=== PATIENT | male | born 1940 | race Caucasian/White ===

== ENCOUNTER → 2018-03-30 | Outpatient (CLI) | payer MEDICARE ==
--- NOTE | 2018-03-30 08:21 | Diagnostic Imaging Report ---
This report includes an Addendum and supersedes previous reports for this exam. PROCEDURE:ABDOMINAL ULTRASOUND COMPARISON:None. INDICATIONS:Hep C, Hypertension FINDINGS: The exam is somewhat limited due to overlying bowel gas and patient's body habitus. Liver: Hepatomegaly, measuring 17.8 cm. Normal hepatic parenchymal echogenicity. No focal mass. Main portal vein: Measures 0.8 cm. Hepatopedal flow. Gallbladder: No evidence of wall thickening, pericholecystic fluid, or cholelithiasis. Common Bile Duct: Measures 0.5 cm. No echogenic filling defect. Sonographic Monreal's sign: Negative. Right kidney: Multiple right sided simple renal cysts, measuring up to 3.6 cm in the superior pole and 1.6 cm in the superior pole medially. A 3.8 cm mildly septated predominately anechoic cyst is seen in the right mid pole kidney. No solid mass, echogenic calculi, or hydronephrosis. Normal parenchymal echogenicity. Left kidney: Multiple left sided simple renal cysts, measuring up to 5.1 cm in the superior pole, an additional 1.3 cm cyst in the superior pole, and 1.9 cm cyst in the inferior pole. No solid mass, echogenic calculi, or hydronephrosis. Normal parenchymal echogenicity. Spleen: Measures 13.1 cm. Pancreas: The visualized portions of the pancreas are normal. Inferior vena cava: Normal. Aorta: Normal. Ascites: None. CONCLUSION: Hepatomegaly. Bilateral simple appearing renal cysts. Additional predominately simple 3.8 cm right mid pole cyst does not meet sonographic criteria for follow-up. Dictated by: RICH JIMENEZ M.D. on 03/30/2018 at 8:27 Electronically approved by: RICH JIMENEZ M.D. on 03/30/2018 at 8:27 ADDENDUM: The kidneys are mildly hyperechoic bilaterally, a non-specific finding. The right kidney measures 11.7 cm and the left kidney measures 12.4 cm. Dictated by: RICH JIMENEZ M.D. on 03/30/2018 at 8:33 Electronically approved by: RICH JIMENEZ M.D. on 03/30/2018 at 8:33
== END ==
LOC: US 07:18
PROVIDERS: ATTEND Internal Medicine Gastroenterology
DX: B18.2 Chronic viral hepatitis C (principal); I10 Essential (primary) hypertension; E66.9 Obesity, unspecified; Z71.3 Dietary counseling and surveillance
CPT/HCPCS: 76700

== ENCOUNTER → 2019-11-17 | Outpatient (CLI) | payer MEDICARE ==
[~2019-11-17] VITALS: Ht 190.5 cm; Wt 111.1 kg
[~2019-11-17] MED LIST: CEFDINIR300 MG PO; FLOMAX0.4 MG PO; GEMFIBROZIL600 MG PO; HYDROCHLOROTHIA25 MG PO; LOSARTAN POTAS100 MG PO; NIACIN500 M2 PO; SERTRALINE HCL50 MG PO
--- OUTSIDE RECORDS SUMMARY | 2019-11-17 09:55 | XMS REPORT ---
Author [facility] Address Unknown Phone Unavailable Care Team Providers Care Personal Care Attendant Name Role Phone HimanshuLIAMCaroline ROSA Unavailable Unavailable Payers Payer Name Policy Type Policy Number Effective Date Expiration Date Problems This patient has no known problems. Allergies, Adverse Reactions, Alerts Allergy Name Allergy Type Status Severity Reaction(s) Onset Date Inactive Date Treating Clinician Comments tetanus and diphtheria toxoids DA Active U 2016-03-05 00:00:00 Medications This patient has no known medications. Results Test Description Test Time Test Comments Text Results Atomic Results Result Comments SKIN,BIOPSY 2019-05-11 15:23:00 RUN DATE: 05/11/19 [facility] PAGE 1 RUN TIME: 1523 Specimen Inquiry RUN USER: INTERFACE PATIENT: MAURO BOND LOC: [facility] U #: [id number] AGE/SX: 78/M ROOM: RE05/09/19REG DR: Umang Javed MD : 39 BED: DIS: STATUS: GM Carolyn TLOC: SPEC #: [id number] RECD: 05/10/19 STATUS: ANTHONY RE #: [id number] FERNY: 05/09/19- SUBM DR: Umang Javed MD ENTERED: 05/10/19 SP TYPE: BX SKIN OTHR DR: Santosh Haas MD ORDERED: GROSS [place]IES [place]: [place] [id number] [place] [address] Santosh Haas MD [address] [place], [place] [id number] PROCEDURES: GROSS (05/11/19-1312) TISSUES: RIGHT LEG - LATERAL LOWER PUNCH BX CLINICAL HISTORY COLLECTION DATE: 05/09/19 NON-HEALING WOUND COMMENT Microscopic evaluation of multiple levels show no evidence of malignancy. Recommend excisional biopsy if there is clinical concern of a malignant lesion. FINAL DIAGNOSIS Skin, right lower lateral leg, punch biopsy: GRANULATION TISSUE, MILD CHRONIC INFLAMMATION, FIBROSIS AND FOREIGN BODY GIANT CELL REACTION, (see comment) NEGATIVE FOR MALIGNANCY FA/sm D 35974 CONTINUED ON NEXT PAGE RUN DATE: 05/11/19 [facility] - Lab PAGE 2 RUN TIME: 1523 Specimen Inquiry RUN USER: INTERFACE ------- SPEC #: [id number] PATIENT: MAURO BOND #[id number] (Continued) MACROSCOPIC The specimen is received in formalin, labeled with the patient's name and identified as "right lateral lower leg punch bx X 2". It consists of a punch biopsy measuring 0.1 cm in diameter and 1.0 cm in length. There are also small fragments of arroyo-pink tissue measuring up to 0.2 cm. The specimen is entirely submitted in a single cassette. GROSS PERFORMED AT [facility] [address] [place] [address] [phone] MICROSCOPIC Microscopic evaluation of multiple levels show a small portion of unremarkable epidermis. The dermis shows loose spindle cell proliferation and mild chronic inflammation. Rare extravasated red blood cells are seen. In addition, there is minute detached portion of tissue with small vessel proliferation and mild acute and chronic inflammatory infiltrates suggestive of granulation tissue. Sections of deep dermis shows foreign bodies with fine body giant cell reaction. No malignancy is identified. All of the stains, including any controls performed, stain appropriately. MICROSCOPIC PERFORMED AT [facility] [address] [place], [place] [id number] [phone] PERFORMING SITE Diagnosis performed at: [facility], [address] [place] [address] Signed SIGNATURE ON FILE Huong Moy MD 05/11/19 1523 END OF REPORT US ABDOMEN COMPLETE 2018-03-30 08:33:00 [place] [address] Patient Name: MAURO BOND MR #: [id number] : 1940 Age/Sex: 77/M Req #: [id number] Adm Physician: Ordered by: ROSA WILLIS MD Report #: [id number] Location: Room/Bed: Procedure: [id number] US/US ABDOMEN COMPLETE Exam Date: Exam Time: REPORT STATUS: Signed This report includes an Addendum and supersedes previous reports for this exam. PROCEDURE: ABDOMINAL ULTRASOUND COMPARISON: None. INDICATIONS: Hep C, Hypertension FINDINGS: The exam is somewhat limited due to ove rlying bowel gas and patient's body habitus. Liver: Hepatomegaly, measuring 17.8 cm. Normal hepatic parenchymal echogenicity. No focal mass. Main portal vein: Measures 0.8 cm. Hepatopedal flow. Gallbladder: No evidence of wall thickening, pericholecystic fluid, or cholelithiasis. Common Bile Duct: Measures 0.5 cm. No echogenic filling defect. Sonographic Monreal's sign: Negative. Right kidney: Multiple right sided simple renal cysts, measuring up to 3.6 cm in the superior pole and 1.6 cm in the superior pole medially. A 3.8 cm mildly septated predominately anechoic cyst is seen in the right mid pole kidney. No solid mass, echogenic calculi, or hydronephrosis. Normal parenchymal echogenicity. Left kidney: Multiple left sided simple renal cysts, measuring up to 5.1 cm in the superior pole, an additional 1.3 cm cyst in the superior pole, and 1.9 cm cyst in the inferior pole. No solid mass, echogenic calculi, or hydronephrosis. Normal parenchymal echogenicity. Spleen: Measures 13.1 cm. Pancreas: The visualized portions of the pancreas are normal. Inferior vena cava: Normal. Aorta: Normal. Ascites: None. CONCLUSION: Hepatomegaly. Bilateral simple appearing renal cysts. Additional predominately simple 3.8 cm right mid pole cyst does not meet sonographic criteria for follow-up. Dictated by: RICH JIMENEZ M.D. on 03/30/2018 at 8:27 Electronically approved by: RICH JIMENEZ M.D. on 03/30/2018 at 8:27 ADDENDUM: The kidneys are mildly hyperechoic bilaterally, a non-specific finding. The right kidney measures 11.7 cm and the left kidney measures 12.4 cm. Dictated by: RICH JIMENEZ M.D. on 03/30/2018 at 8:33 Electronically approved by: RICH JIMENEZ M.D. on 03/30/2018 at 8:33 Dictated By: RICH JIMENEZ MD [id number] Transcribed By: MICHELL on 03/30/18 0833 COPY TO: ROSA WILLIS MD
--- NOTE | 2019-11-17 10:00 | NUR ---
Checked patient's temperature via skin probe: 98.5F. Patient denies being out of the country or out of state in the last 14 days. Patient denies being around anyone who has been out of the country or the state in the last 14 days. Patient denies being around anyone who has been exposed or diagnosed with COVID-19 in the last 14 days. Patient denies fever, cough, or shortness of breath within the last 14 days.
[2019-11-17 10:46] LABS: BASOPHILS # (AUTO) 0.1 (0.0-0.1); BASOPHILS % 0.7 % (0.0-1.0); EOSINOPHILS # (AUTO) 0.9 (0.0-0.4); EOSINOPHILS % 10.8 % (0.0-6.0); HEMATOCRIT 31.2 % (38.2-49.6); HEMOGLOBIN 10.1 g/dL (14.0-18.0); LYMPHOCYTES # (AUTO) 1.5 (1.0-3.2); LYMPHOCYTES % 17.8 % (18.0-39.1); MEAN CORPUSCULAR HGB CONC 32.4 g/dL (31-35); MEAN CORPUSCULAR VOLUME 92.6 fL (81-99); MONOCYTES # (AUTO) 0.6 (0.2-0.8); MONOCYTES % 7.4 % (4.4-11.3); NEUTROPHILS # (AUTO) 5.3 (2.1-6.9); NEUTROPHILS % 62.8 % (38.7-80.0); PLATELET COUNT 273 x10e3/uL (140-360); RED BLOOD COUNT 3.37 x10e6/uL (4.3-5.7); RED CELL DISTRIBUTION WIDTH 15.5 % (11.7-14.4)
[2019-11-17 11:08] LABS: ALBUMIN 3.8 g/dL (3.5-5.0); ANION GAP 13.6 mmol/L (8-16); CREATININE, SERUM 2.86 mg/dL (0.72-1.25); POTASSIUM 4.6 mmol/L (3.5-5.1)
--- NOTE | 2019-11-17 14:00 | NUR ---
Dr. Washington notified of creatinine 2.[address] Washington cancelled procedure.
== END | disposition home or self-care (01) ==
LOC: LAB 05:00 → CATH LAB 09:54 → EDSTATUS 11-21 13:00
PROVIDERS: ATTEND Internal Medicine Interventional Cardiology
DX: I20.8 Other forms of angina pectoris (principal); I73.9 Peripheral vascular disease, unspecified; Z53.8 Procedure and treatment not carried out for other reasons
CPT/HCPCS: 36415; 80053; 85025

== ENCOUNTER 2019-12-12 10:34 | Observation (INO) | payer MEDICARE, OTHER ==
[~2019-12-12] VITALS: Ht 190.5 cm; Wt 98.9 kg
[2019-12-12] MEDS ORDERED: ONDANSETRON HCL INJ 2MG/ML 2ML 2 MG/ML VIAL IV ONE (10:37)
[2019-12-12] MEDS ORDERED: ONDANSETRON HCL INJ 2MG/ML 2ML 2 MG/ML VIAL IM STA (10:37)
[2019-12-12] MEDS ORDERED: SODIUM CHLORIDE 0.9% 1000ML 1,000 ML IV STA (10:37)
[2019-12-12 10:59] LABS: BASOPHILS # (AUTO) 0.1 (0.0-0.1); BASOPHILS % 0.9 % (0.0-1.0); EOSINOPHILS # (AUTO) 0.4 (0.0-0.4); EOSINOPHILS % 5.3 % (0.0-6.0); HEMATOCRIT 32.9 % (38.2-49.6); HEMOGLOBIN 10.6 g/dL (14.0-18.0); LYMPHOCYTES # (AUTO) 1.5 (1.0-3.2); LYMPHOCYTES % 22.3 % (18.0-39.1); MEAN CORPUSCULAR HEMOGLOBIN 29.7 pg (28-32); MEAN CORPUSCULAR HGB CONC 32.2 g/dL (31-35); MEAN CORPUSCULAR VOLUME 92.2 fL (81-99); MONOCYTES # (AUTO) 0.4 (0.2-0.8); MONOCYTES % 6.3 % (4.4-11.3); NEUTROPHILS # (AUTO) 4.4 (2.1-6.9); NEUTROPHILS % 64.8 % (38.7-80.0); PLATELET COUNT 327 x10e3/uL (140-360); RED BLOOD COUNT 3.57 x10e6/uL (4.3-5.7); RED CELL DISTRIBUTION WIDTH 15.6 % (11.7-14.4)
[2019-12-12 11:03] LABS: CLARITY,URINE CLEAR (CLEAR); COLOR,URINE YELLOW (YELLOW); LEUKOCYTE ESTERASE ,URINE NEGATIVE (NEGATIVE); NITRITE,URINE NEGATIVE (NEGATIVE)
[2019-12-12 11:04] LABS: BILIRUBIN,URINE NEGATIVE (NEGATIVE); KETONES,URINE NEGATIVE (NEGATIVE); PROTEIN,URINE DIPSTICK TRACE (NEGATIVE); URINE UROBILINOGEN 0.2 mg/dL (0.2 - 1)
[2019-12-12 11:28] LABS: ALBUMIN 3.8 g/dL (3.5-5.0); ALBUMIN/GLOBULIN RATIO 0.9 (0.8-2.0); ANION GAP 15.6 mmol/L (8-16); CALCIUM 9.4 mg/dL (8.4-10.2); CREATININE, SERUM 3.52 mg/dL (0.72-1.25); POTASSIUM 4.6 mmol/L (3.5-5.1)
[2019-12-12 11:38] LABS: BACTERIA,URINE MODERATE /HPF; RBC,URINE 0-5 /HPF (0-5)
[2019-12-12 11:39] LABS: EPITHELIAL CELLS,URINE MODERATE /LPF
[2019-12-12 11:41] LABS: CREATINE KINASE MB 3.4 ng/mL (0-5.0)
--- NOTE | 2019-12-12 14:00 | Diagnostic Imaging Report ---
CT of the abdomen and pelvis, without contrast. History: Nausea, vomiting. Comparison: None available. Technique: Multidetector CT scanning of the abdomen and pelvis was performed from the level of the lung bases to the inferior pubic rami without the use of contrast. Coronal and sagittal multiplanar reformations were obtained. RADIATION DOSE: Total DLP: 712.04 mGy*cm Dose modulation, iterative reconstruction, and/or weight based adjustment of the mA/kV was utilized to reduce the radiation dose to as low as reasonably achievable. FINDINGS: The lung bases are remarkable for mild atelectasis/scarring. Atherosclerotic calcifications are noted within the visualized coronary arteries. The liver is normal in size and attenuation on this noncontrast enhanced examination. The gallbladder is unremarkable. There is no biliary ductal dilatation. The stomach, spleen, pancreas, and bilateral adrenal glands demonstrate unremarkable noncontrast appearance. The kidneys are normal in location with areas of cortical scarring present bilaterally. There are bilateral hypodensities which are not definitively characterized on this noncontrast enhanced examination but likely represent cysts. The largest on the left measures 4.4 x 5.0 cm. The largest on the right measures 4.9 x 3.3 cm. There is no evidence for nephrolithiasis or hydronephrosis. No ureteral stone or dilatation is appreciated. The partially distended urinary bladder demonstrates no significant abnormalities. The prostate is enlarged measuring 6.5 cm and contains dystrophic calcifications. The abdominal aorta is normal in caliber with atherosclerotic calcifications within its course and branch vessels. The IVC is normal in caliber. Please note evaluation of the bowel is limited without the use of enteric contrast material. The visualized loops of small and large bowel demonstrate no evidence of obstruction or inflammation. There is no ascites or intraperitoneal free air. No abnormally enlarged lymph nodes are identified within the abdomen or pelvis. Small fat-containing inguinal hernias noted. There are multilevel degenerative changes of the thoracolumbar spine including mild anterolisthesis of L4 on L5. There is no evidence for acute fracture or destructive process. The extraperitoneal soft tissues are unremarkable. IMPRESSION: No acute abdominopelvic process identified. Bilateral renal cysts. Prostatomegaly. Abdominal aortic atherosclerosis and coronary artery disease. Signed by: Dr. Paulo Burgess MD on 12/12/2019 1:57 PM
[2019-12-12] MEDS: CIPROFLOXACIN 400 MG/D5W 200ML 200 ML IV SCH (14:58)
--- NOTE | 2019-12-12 16:01 | NUR ---
Recvd patient from ER. AAOX3 , Denies any pain or SOB, not in any distress, keep monitoring, call light in reach
[2019-12-12 16:27] VITALS: BP 100/64
[2019-12-12 16:54] VITALS: BP 100/64
[2019-12-12] MEDS ORDERED: HYDROCHLOROTHIA25 MG PO (17:10)
[2019-12-12] MEDS ORDERED: FLOMAX0.4 MG PO (17:10)
[2019-12-12] MEDS ORDERED: GEMFIBROZIL600 MG PO (17:10)
[2019-12-12] MEDS ORDERED: LOSARTAN POTAS100 MG PO (17:10)
[2019-12-12] MEDS ORDERED: NIACIN500 M2 PO (17:10)
[2019-12-12] MEDS ORDERED: SERTRALINE HCL50 MG PO (17:10)
[2019-12-12] MEDS: SODIUM CHLORIDE 0.9% 1000ML 1,000 ML IV SCH (18:02)
--- NOTE | 2019-12-12 19:00 | NUR ---
RECEIVED BEDSIDE SHIFT REPORT FROM PREVIOUS NURSE. CALL LIGHT WITHIN REACH. PATIENT IN BED ASLEEP
[2019-12-12 19:32] LABS: CREATINE KINASE MB 4.8 ng/mL (0-5.0)
[2019-12-12 20:00] VITALS: BP 132/82
[2019-12-12 20:13] VITALS: BP 100/64
[2019-12-12 20:31] VITALS: BP 132/82
[2019-12-13] VITALS: BP 98/64
[2019-12-13] MEDS: CIPROFLOXACIN 400 MG/D5W 200ML 200 ML IV SCH (02:10)
[2019-12-13 02:56] LABS: BASOPHILS # (AUTO) 0.1 (0.0-0.1); BASOPHILS % 0.8 % (0.0-1.0); EOSINOPHILS # (AUTO) 0.4 (0.0-0.4); EOSINOPHILS % 6.2 % (0.0-6.0); HEMOGLOBIN 9.1 g/dL (14.0-18.0); LYMPHOCYTES # (AUTO) 1.5 (1.0-3.2); LYMPHOCYTES % 25.6 % (18.0-39.1); MEAN CORPUSCULAR HEMOGLOBIN 29.9 pg (28-32); MEAN CORPUSCULAR HGB CONC 32.5 g/dL (31-35); MEAN CORPUSCULAR VOLUME 92.1 fL (81-99); MONOCYTES # (AUTO) 0.5 (0.2-0.8); MONOCYTES % 7.5 % (4.4-11.3); NEUTROPHILS # (AUTO) 3.6 (2.1-6.9); NEUTROPHILS % 59.6 % (38.7-80.0); PLATELET COUNT 295 x10e3/uL (140-360); RED BLOOD COUNT 3.04 x10e6/uL (4.3-5.7); RED CELL DISTRIBUTION WIDTH 15.5 % (11.7-14.4)
[2019-12-13 03:19] LABS: CREATINE KINASE MB 10.3 ng/mL (0-5.0)
[2019-12-13 03:32] LABS: ALBUMIN 3.1 g/dL (3.5-5.0); ALBUMIN/GLOBULIN RATIO 0.9 (0.8-2.0); ANION GAP 14.6 mmol/L (8-16); CALCIUM 8.8 mg/dL (8.4-10.2); CREATININE, SERUM 2.94 mg/dL (0.72-1.25); POTASSIUM 4.6 mmol/L (3.5-5.1)
[2019-12-13 04:00] VITALS: BP 130/81
[2019-12-13] MEDS: SODIUM CHLORIDE 0.9% 1000ML 1,000 ML IV SCH (06:30)
--- NOTE | 2019-12-13 07:10 | NUR ---
PATIENT IS AWAKE, AMBULATING IN HIS ROOM AND IS IN STABLE CONDITION WITH NO S/S OF RESPIRATORY DISTRESS. NO PAIN VOICED. DRESSING TO WOUND ON RIGHT LOWER EXTREMITY IS C/D/I. IV FLUIDS INFUSING. CALL LIGHT IS WITHIN REACH, PATIENT INSTRUCTED TO CALL FOR ASSISTANCE NEEDED.
--- NOTE | 2019-12-13 07:20 | NUR ---
GAVE BEDSIDE SHIFT REPORT TO ONCOMING NURSE. PATIENT IN BED. CALL LIGHT WITHIN REACH.
[2019-12-13 07:45] VITALS: BP 129/71
[2019-12-13 07:47] VITALS: BP 129/71
[2019-12-13] MEDS ORDERED: CEFTRIAXONE SOD 1 GM/NS 50 ML 50 ML IV SCH (10:30)
[2019-12-13] MEDS ORDERED: CEFDINIR300 MG PO (10:36)
--- NOTE | 2019-12-13 11:13 | NUR ---
WOUND CARE CONSULT FOR 79 YO MALE HX OF NONHEALING RIGHT LOWER LEG WOUND VASQUEZ 20 ON CONSERVATIVE PUP STATUS AND INTERVENTIONS AND ALTERNATING PRESSURE MATTRESS LABS: WBC-5.98 HGB_9.1 GLUCOSE-113 SKIN ASSESSMENT COMPLETE PATIENT PRESENTS WITH NONHEALING ULCERATION TO RIGHT LOWER LEG HISTORY PER PATIENT WOUND PRESENT X 3 YEARS NONHEALING FROM WHAT HE BELEVIES TO BE A SPIDER BITE HE IS CURRENTLY UNDER CARE FOR WOUND AT [facility] OUTPATIENT WOUND CARE RECOMMENDATIONS: NURSING TO CONTINUE TO MAINTAIN CONSERVATIVE PUP STATUS AND INTERVENTIONS AND ALTERNATING PRESSURE MATTRESS NURSING TO CONTINUE TO ASSIST PATIENT OUT OF BED FOR MEALS AND MUCH TOLERATED NURSING TO CONTINUE TO ASSIST PATIENT NEEDED WITH MEALS AND NUTRITIONAL SUPPLEMENTS TO ENSURE PROPER REQUIREMENTS FOR HEALING NURSING TO CONTINUE TO OFFLOAD FEET AND HEELS NEEDED WITH PILLOW SUSPENSION WHEN IN BED NURSING TO CLEAN RIGHT LOWER LEG PARTIAL THICKNESS WOUND WITH NORMAL SALINE EVERY OTHER DAY AND APPLY CHRISTINE COLLAGEN TO WOUND BASE COVER WITH NONADHERENT PAD AND ALLEVYN FOAM DRESSING AND ALLEVYN FOAM DRESSING AND LIGHTLY COMPRESS (PATIENT HAS TUBIGRIP 1 LAYER ON) Addendum: 12/13/19 at 1121 by Cricket Flower RN Amended: Links added.
[2019-12-13 11:46] VITALS: BP 151/67
[2019-12-13 15:35] VITALS: BP 142/67
--- NOTE | 2019-12-13 16:16 | NUR ---
PATIENT DISCHARGE HOME- PATIENT OFF THE UNIT AT 1524 PER WHEELCHAIR ACCOMPANIED BY STAFF MEMBER TO THE FRONT LOBBY. PATIENT IS IN STABLE CONDITION WITH NO S/S OF RESPIRATORY DISTRESS. NO PAIN VOICED. IV REMOVED WITH TIP INTACT. DISCHARGE TEACHING, INSTRUCTIONS, AND MEDICATION GIVEN TO THE PATIENT. ALL PERSONAL ITEMS TAKEN WITH THE PATIENT.
--- NOTE | 2019-12-14 12:03 | Discharge Summary ---
ADMISSION DIAGNOSES: 1. Pancreatitis. 2. Possible urinary tract infection present on admission. 3. Hypertension. 4. BPH. 5. Anxiety. 6. Depression. DISCHARGE DIAGNOSES: 1. Pancreatitis. 2. Possible urinary tract infection present on admission. 3. Hypertension. 4. BPH. 5. Anxiety. 6. Depression. HISTORY: Hypertension, BPH, anxiety and depression. SURGICAL HISTORY: Left hand surgery, tonsillectomy, appendectomy, right inguinal hernia repair. FAMILY HISTORY: The patient's great grandmother had cancer. SOCIAL HISTORY: Noncontributory. HOSPITAL COURSE: An 79-year-old male, admits with complaints of intermittent abdominal pain, which was epigastric for 1 week. He attributed to acid reflux. Symptoms worsen with food. He denies fever and diarrhea. He has associated nausea and vomiting. On admission, the patient's lipase was 220 and UA came back positive with bacteria and WBC, but no leukocytes or nitrites. He was started on Rocephin and started on IV fluids. From the ER, the patient was allowed to have a regular diet, which he tolerated. He is very adamant about going home. He is able to tolerate breakfast and lunch with no nausea, vomiting, or abdominal pain, so he will discharge home. CT of the abdomen showed no acute processes. He was discharged home with prescription for Omnicef for the possible UTI. The patient understands instructions and agrees to plan. He will follow up with primary care in 1-2 weeks. Dictated by Lindsay Quintanilla NP MD ZONIA Woo/CRISTINA /[id number]
== END 2019-12-13 15:24 | disposition home or self-care (01) ==
LOC: ER 10:34 → ERHOLD 14:17 → MED/SURG3 15:49
PROVIDERS: ADMIT Internal Medicine; ATTEND Internal Medicine
DX: K85.90 Acute pancreatitis without necrosis or infection, unspecified (principal); I10 Essential (primary) hypertension; N40.0 Benign prostatic hyperplasia without lower urinary tract symptoms; F41.9 Anxiety disorder, unspecified; F32.9 Major depressive disorder, single episode, unspecified; Z88.7 Allergy status to serum and vaccine; Z80.9 Family history of malignant neoplasm, unspecified; K21.9 Gastro-esophageal reflux disease without esophagitis
CPT/HCPCS: 36415 ×2; 74176; 80053 ×2; 81001; 82550 ×2; 82553 ×2; 83690; 84484 ×2; 85025 ×2; 87086; 87635; 93005; 99251; 99284; G0378 ×2; J0696; J0744 ×2; J2405; J7030 ×2